=== PATIENT | female | born 1955 | race Caucasian/White ===

== ENCOUNTER 2018-12-05 10:58 | Emergency (ER) | payer MEDICARE ==
[2018-12-05 11:06] VITALS: BP 157/94
[2018-12-05] MEDS ORDERED: Albuterol/Ipratropium NEB.SOL* Albuterol 2.5 MG/Ipratropium 0.5 MG 3 ML INH ONE (11:49)
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
== END 2018-12-05 12:41 | disposition home or self-care (01) ==
LOC: UCEAST 10:58
DX: J20.9 Acute bronchitis, unspecified (principal); Z88.0 Allergy status to penicillin; Z88.5 Allergy status to narcotic agent; Z87.891 Personal history of nicotine dependence
CPT/HCPCS: 71046; 99212; A9270-GY; G0463

== ENCOUNTER 2019-02-25 12:25 | Emergency (ER) | payer MEDICARE ==
[2019-02-25 12:45] VITALS: BP 137/74
--- NOTE | 2019-02-25 13:17 | UC ---
UC General HPI - HPI Summary HPI Summary: Pleasant 63 yo female c/o last 3 days urinary freq /urg / dysuria. No alvin hematuria. No fever / chills. No Abd pain except bladder discomfort with urination. Some mid low back pain. No flank pain. Hx multiple abd surgeries, including gbd as as teenager, hysterectomy, bowel obst. + hx celiac dz, gluten free diet. Last colonoscopy approx 6 mo ago, polyps removed. Recent upper resp infection, tx via quinolone in the last couple months. Better now. Reports that uti's are usually e-coli, recently dx'd with uti several mo ago via pcp, rx quinolone. Does not want to take pyridium, makes her wheeze. Does not report vaginal problems. - History of Current Complaint Chief Complaint: UCGU Stated Complaint: URINARY ISSUE Time Seen by Provider: 02/25/19 12:55 Hx Obtained From: Patient Hx Last Menstrual Period: na Pain Intensity: 8 - Allergy/Home Medications Allergies/Adverse Reactions: Allergies Allergy/AdvReac Type Severity Reaction Status Date / Time Penicillins Allergy Intermediate Hives Verified 02/25/19 12:45 amoxicillin Allergy hives/difficulty Verified 02/25/19 12:45 breathing fentanyl AdvReac GI Upset Verified 02/25/19 12:45 PMH/Surg Hx/FS Hx/Imm Hx Previously Healthy: No - see hpi Other History Of: Negative For: Anticoagulant Therapy - Surgical History Surgical History: Yes Surgery Procedure, Year, and Place: hysterectomy. appendectomy. gastric bypass 1985. intestinal blockage surgery 09/20/12 x4. RIGHT TKR 2009 WITH REVISION 10/2013. age 11 - left breast - lumpectomy and lymph nodes - Family History Known Family History: Positive: Unknown - Social History Alcohol Use: Rare Substance Use Type: None Smoking Status (MU): Former Smoker Type: Cigarettes When Did the Patient Quit Smoking/Using Tobacco: 30 years - Immunization History Most Recent Influenza Vaccination: Most Recent Tetanus Shot: UNSURE Most Recent Pneumonia Vaccination: HAS HAD, USUALLY HAS EVERY YEAR BUT TOLD THIS YEAR NOT TO GET R/T KNEE SX Review of Systems All Other Systems Reviewed And Are Negative: Yes Constitutional: Positive: Negative Skin: Positive: Negative Eyes: Positive: Negative ENT: Positive: Negative Respiratory: Positive: Other - see hpi Cardiovascular: Positive: Other - see hpi Gastrointestinal: Positive: Other - see hpi Genitourinary: Positive: Other - see hpi Motor: Positive: Negative Neurovascular: Positive: Negative Musculoskeletal: Positive: Negative Neurological: Positive: Negative Psychological: Positive: Negative Is Patient Immunocompromised?: No Physical Exam Triage Information Reviewed: Yes Appearance: Well-Appearing - looks tired, Well-Nourished Vital Signs: Initial Vital Signs Temp 96.3 F 02/25/19 12:40 Pulse 75 02/25/19 12:40 Resp 16 02/25/19 12:40 BP 137/74 02/25/19 12:40 Pulse Ox 100 02/25/19 12:40 Vital Signs Reviewed: Yes Eye Exam: Normal ENT Exam: Normal Neck exam: Normal Neck: Positive: Supple Respiratory Exam: Other - mild exp wheeze R chest Respiratory: Positive: Chest non-tender, No respiratory distress, No accessory muscle use Cardiovascular Exam: Normal Cardiovascular: Positive: RRR, Brisk Capillary Refill Abdominal Exam: Other - several large scars d/t prior surgery. Tender to pressure over bladder area. No r/g. No flank discomfort or cvat perse. + tender subj mid low back. Abd soft, nd. No r/g. Bowel Sounds: Positive: Present Musculoskeletal Exam: Normal Neurological Exam: Normal - grossly nonfocal, detailed not done Psychological Exam: Normal - conversing easily and appropriately Skin Exam: Normal - nondiaphoretic Course/Dx - Course Course Of Treatment: I reviewed Ms. Xavier's urine cx results as aviailable, noteworthy for e-coli. Reviewed sens / res. No recent cx's. Urine dip without acute findings, however, d/t sx cx sent. Pt reports that this is not unusual. Will start ceftin (she has taken cephalosporins in the past), she expresses understanding and relief. Aware of the need to go to the ED for any problems, worse or new sx. Will f/u pcp 1-2 weeks. Will eat yogurt and / or probiotic during course of abx. Questions as posed answered to the best of my ability. - Diagnoses Provider Diagnosis: Dysuria Discharge - Sign-Out/Discharge Documenting (check all that apply): Patient Departure All imaging exams completed and their final reports reviewed: No Studies - Discharge Plan Condition: Stable Disposition: HOME Prescriptions: ceFUROXime TAB(*) [Ceftin TAB 250 MG(*)] 500 mg PO BID #20 tab Patient Education Materials: Dysuria (ED) Referrals: Alexi AUSTIN,Dariel Carter [Primary Care Provider] - Additional Instructions: Please follow up with your primary care physician, Dr. Truong, in the next 1-2 weeks. Drink plenty of water. Seek medical attention for worse or new problems (Emergency Department). You have a urine culture in the lab. - Billing Disposition and Condition Condition: STABLE Disposition: Home
== END 2019-02-25 13:34 | disposition home or self-care (01) ==
LOC: UCEAST 12:25
DX: R30.0 Dysuria (principal); R35.0 Frequency of micturition; R39.15 Urgency of urination; M54.5 Low back pain; Z88.0 Allergy status to penicillin; Z88.5 Allergy status to narcotic agent; Z87.891 Personal history of nicotine dependence
CPT/HCPCS: 81003; 87086; 99212; G0463

== ENCOUNTER 2020-01-14 11:38 | Emergency (ER) | payer MEDICARE ==
[2020-01-14 12:19] VITALS: BP 126/64
--- NOTE | 2020-01-14 13:21 | UC ---
FLU HPI - HPI Summary HPI Summary: 64 yo female presents with vomiting and diarrhea. She tells me that last night she felt her stomach was "off". She woke up around 0100 and felt very nauseous. She has vomited multiple times with loose stools. Last time vomited was 0700 and she is feeling better now. Tolerating water and osman krystal, but has not eaten due to fear of vomiting again. She saw her PCP yesterday for a routine check up and said everything was fine. She denies fever, chills, SOB, chest pain , abdominal pain, dysuria, back pain. - History of Current Complaint Chief Complaint: UCGeneralIllness Stated Complaint: VOMITING CONGESTION Time Seen by Provider: 01/14/20 13:21 Hx Obtained From: Patient Hx Last Menstrual Period: na Onset/Duration: Sudden Onset Severity Currently: None Severity Initially: Mild Pain Intensity: 0 - Allergy/Home Medications Allergies/Adverse Reactions: Allergies Allergy/AdvReac Type Severity Reaction Status Date / Time Penicillins Allergy Intermediate Hives Verified 01/14/20 12:19 amoxicillin Allergy hives/difficulty Verified 01/14/20 12:19 breathing fentanyl AdvReac GI Upset Verified 01/14/20 12:19 Home Medications: Home Medications LORazepam TAB(*) [Ativan 1 MG TAB (*)] 1 mg PO Q6H PRN 10/29/13 [History Confirmed 01/14/20] Lipase/Protease/Amylase [Jennifer Connors 10,500 Unit Cap] 2 cap PO TID WITH MEALS 10/29/13 [History Confirmed 01/14/20] Pantoprazole TAB * [Protonix TAB*] 40 mg PO BID 10/29/13 [History Confirmed 04/29] Potassium Chlor Tab* [K Dur Tab*] 10 meq PO DAILY PRN 10/29/13 [History Confirmed 01/14/20] Spironolactone TAB* [Aldactone TAB 25 MG*] 25 mg PO DAILY 10/29/13 [History Confirmed 01/14/20] Levothyroxine TAB* 1 tab PO DAILY 07/06/14 [History Confirmed 01/14/20] Miralax* 1 mg PO DAILY 10/27/14 [History Confirmed 01/14/20] Albuterol HFA INHALER* [Ventolin HFA Inhaler*] 1 - 2 puff INH Q4H PRN #1 mdi [Rx Confirmed 02/25/19] Inhaler, Assist Devices [Aerochamber Mv] 1 mis XX Q6HR #1 mis 12/05/18 [Rx Confirmed 02/25/19] Ondansetron ODT TAB* [Zofran 4 MG Odt TAB*] 4 mg PO Q8H PRN #12 tab.odt [Rx] PMH/Surg Hx/FS Hx/Imm Hx - Additional Past Medical History Additional PMH: UC "hole in heart" Other History Of: Negative For: Anticoagulant Therapy - Surgical History Surgical History: Yes Surgery Procedure, Year, and Place: hysterectomy. appendectomy. gastric bypass 1985. intestinal blockage surgery 09/20/12 x4. RIGHT TKR 2009 WITH REVISION 10/2013. Gallbladder at 16. age 11 - left breast - lumpectomy and lymph nodes - Family History Known Family History: Positive: Unknown - Social History Lives: With Family Alcohol Use: Rare Substance Use Type: None Smoking Status (MU): Former Smoker Type: Cigarettes When Did the Patient Quit Smoking/Using Tobacco: 30 years - Immunization History Most Recent Influenza Vaccination: Most Recent Tetanus Shot: UNSURE Most Recent Pneumonia Vaccination: HAS HAD, USUALLY HAS EVERY YEAR BUT TOLD THIS YEAR NOT TO GET R/T KNEE SX Review of Systems All Other Systems Reviewed And Are Negative: No Constitutional: Positive: Negative Skin: Positive: Negative Eyes: Positive: Negative ENT: Positive: Negative Respiratory: Positive: Negative Cardiovascular: Positive: Negative Gastrointestinal: Positive: Vomiting, Diarrhea, Nausea Genitourinary: Positive: Negative Neurological/Mental Status: Positive: Negative Psychological: Positive: Negative Physical Exam - Summary Physical Exam Summary: GENERAL: NAD. WDWN. No pain distress. SKIN: No rashes, sores, or open wounds. HEENT: Head: AT/NC Eyes: PERRLA. EOM intact. Conjunctiva clear without inflammation or discharge. Ears: Hearing grossly normal. TMs intact, no bulging, erythema, or edema. Nose: Nasal mucosa pink and moist. NTTP maxillary and frontal sinus. Throat: Posterior oropharynx without exudates, erythema, or tonsillar enlargement. Uvula midline. NECK: Supple. Nontender. No lymphadenopathy. CHEST: CTAB. No r/r/w. No accessory muscle use. Breathing comfortably and in no distress. CV: RRR. Pulses intact. Brisk cap refill. ABDOMEN: Soft. NTTP. No distention or guarding. No CVA tenderness. Bowel sounds present NEURO: Alert. PSYCH: Age appropriate behavior. Triage Information Reviewed: Yes Vital Signs: Initial Vital Signs Temp 99.1 F 01/14/20 12:12 Pulse 78 01/14/20 12:12 Resp 18 01/14/20 12:12 BP 126/64 01/14/20 12:12 Pulse Ox 98 01/14/20 12:12 Vital Signs Reviewed: Yes Flu Course/Dx - Course Course Of Treatment: Exam WNL. Pt is tolerating po at this point and has not had any more episodes of vomiting or diarrhea for the last ~5 hours. Suspect viral illness. Advised to rest and drink plenty of clear fluids. Advance diet as tolerated. - Differential Dx/Diagnosis Provider Diagnosis: Nausea and vomiting Discharge ED - Sign-Out/Discharge Documenting (check all that apply): Patient Departure All imaging exams completed and their final reports reviewed: No Studies - Discharge Plan Condition: Stable Disposition: HOME Prescriptions: Ondansetron ODT TAB* [Zofran 4 MG Odt TAB*] 4 mg PO Q8H PRN #12 tab.odt PRN Reason: Nausea Patient Education Materials: Acute Nausea and Vomiting (ED) Referrals: Alexi AUSTIN,Dariel Carter [Primary Care Provider] - Additional Instructions: If you develop a fever, shortness of breath, chest pain, new or worsening symptoms - please call your PCP or go to the ED immediately. If your vomiting continues or if you develop a fever or abdominal pain - please go to the ER immediately - Billing Disposition and Condition Condition: STABLE Disposition: Home
[2020-01-14 13:24] LABS: Influenza A Molecular Negative (Negative); Influenza B Molecular Negative (Negative)
== END 2020-01-14 13:36 | disposition home or self-care (01) ==
LOC: UCEAST 11:38
DX: R11.2 Nausea with vomiting, unspecified (principal); Z87.891 Personal history of nicotine dependence; Z88.0 Allergy status to penicillin; Z88.5 Allergy status to narcotic agent
CPT/HCPCS: 99212; G0463

== ENCOUNTER 2020-02-08 15:12 | Emergency (ER) | payer MEDICARE, OTHER ==
--- NOTE | 2020-02-08 15:50 | UC ---
Respiratory Complaint HPI - HPI Summary HPI Summary: 64yo woman with asthma and stable angina (based on cath done 07/2019), with persistent cough and shortness of breath. She was seen here 3 weeks ago with nausea and vomiting. Subsequent to that, she called her PMD, who sent in an rx for azithromycin, last dose yesterday and she continues to have shortness of breath. Note is made that she has a many month hx of shortness of breath with exertion, which is NOT worse now than it was 6 months ago. Because of finances, she opted not to follow up with cardiology following her catheterization. Long hx of lung "problems" since a crush injury to her chest due to a fall some years ago. She took advair in the past. - History of Current Complaint Chief Complaint: UCRespiratory Stated Complaint: TROUBLE BREATHING, STOMACH, HEAD ACHE Time Seen by Provider: 02/08/20 15:43 Hx Obtained From: Patient Hx Last Menstrual Period: na Onset/Duration: Gradual Onset Character: Cough: Productive - scant green production. Aggravating Factors: Recumbent Position Alleviating Factors: Bronchodilator Associated Signs And Symptoms: Positive: Dyspnea, Wheezing - last albuterol was 2 hours prior to assessment.. Negative: Dizziness - Risk Factors Pulmonary Embolism Risk Factors: Negative Cardiac Risk Factors: Negative Pseudomonas Risk Factors: Negative Tuberculosis Risk Factors: Negative - Allergies/Home Medications Allergies/Adverse Reactions: Allergies Allergy/AdvReac Type Severity Reaction Status Date / Time Penicillins Allergy Intermediate Hives Verified 02/08/20 15:24 amoxicillin Allergy hives/difficulty Verified 02/08/20 15:24 breathing fentanyl AdvReac GI Upset Verified 02/08/20 15:24 Home Medications: Home Medications LORazepam TAB(*) [Ativan 1 MG TAB (*)] 1 mg PO Q6H PRN 10/29/13 [History Confirmed 02/08/20] Lipase/Protease/Amylase [Jennifer Connors 10,500 Unit Cap] 2 cap PO TID WITH MEALS 10/29/13 [History Confirmed 02/08/20] Pantoprazole TAB * [Protonix TAB*] 40 mg PO BID 10/29/13 [History Confirmed ] Potassium Chlor Tab* [K Dur Tab*] 10 meq PO DAILY PRN 10/29/13 [History Confirmed 02/08/20] Spironolactone TAB* [Aldactone TAB 25 MG*] 25 mg PO DAILY 10/29/13 [History Confirmed 02/08/20] Levothyroxine TAB* 1 tab PO DAILY 07/06/14 [History Confirmed 02/08/20] Miralax* 1 mg PO DAILY 10/27/14 [History Confirmed 02/08/20] Albuterol HFA INHALER* [Ventolin HFA Inhaler*] 1 - 2 puff INH Q4H PRN #1 mdi [Rx Confirmed 02/08/20] Inhaler, Assist Devices [Aerochamber Mv] 1 mis XX Q6HR #1 mis 12/05/18 [Rx Confirmed 02/08/20] Ondansetron ODT TAB* [Zofran 4 MG Odt TAB*] 4 mg PO Q8H PRN #12 tab.odt [Rx Confirmed 02/08/20] Budesonide/Formote 160/4.5(NF) [Symbicort 160/4.5 (NF)] 2 puff INH BID #1 mdi [Rx] DOXYcycline CAP(*) [DOXYcycline 100MG CAP(*)] 100 mg PO BID #14 cap 02/08/20 [Rx ] PMH/Surg Hx/FS Hx/Imm Hx Endocrine History: Hypothyroidism Cardiovascular History: Cardiac Disease Respiratory History: Asthma GI/ History: Gastroesophageal Reflux Other History Of: Negative For: Anticoagulant Therapy - Surgical History Surgical History: Yes Surgery Procedure, Year, and Place: hysterectomy. appendectomy. gastric bypass 1985. intestinal blockage surgery 09/20/12 x4. RIGHT TKR 2009 WITH REVISION 10/2013. Gallbladder at 16. 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 Lives: With Family - lives with her son Alcohol Use: Rare Substance Use Type: None Smoking Status (MU): Former Smoker Type: Cigarettes When Did the Patient Quit Smoking/Using Tobacco: 30 years - Immunization History Most Recent Influenza Vaccination: Most Recent Tetanus Shot: UNSURE Most Recent Pneumonia Vaccination: HAS HAD, USUALLY HAS EVERY YEAR BUT TOLD THIS YEAR NOT TO GET R/T KNEE SX Review of Systems All Other Systems Reviewed And Are Negative: Yes Constitutional: Positive: Fatigue Skin: Positive: Negative Eyes: Positive: Negative ENT: Positive: Sinus Congestion Respiratory: Positive: Shortness Of Breath, Cough Cardiovascular: Positive: Chest Pain - describes stable angina--no worsening in the past months., Other - states "hole in her heart" per cathterization Gastrointestinal: Positive: Nausea. Negative: Abdominal Pain, Vomiting Genitourinary: Positive: Negative Motor: Positive: Negative Neurovascular: Positive: Negative Musculoskeletal: Positive: Myalgia Neurological/Mental Status: Positive: Headache - off and on Psychological: Positive: Negative Is Patient Immunocompromised?: No Physical Exam Triage Information Reviewed: Yes Appearance: No Pain Distress, Ill-Appearing - looks chronically unwell, with elevated blood pressure., Obese Eyes: Positive: Conjunctiva Clear ENT: Positive: Pharynx normal Dental Exam: Other - edentulous Neck: Positive: Supple, Nontender, No Lymphadenopathy Respiratory: Positive: No respiratory distress, No accessory muscle use, Wheezing - late expiratory wheeze throughout. Cardiovascular: Positive: RRR, No Murmur Musculoskeletal Exam: Normal Neurological Exam: Normal Psychological Exam: Normal Skin Exam: Normal Diagnostics - Laboratory Lab Results: Influenza negative. Respiratory Course/Dx - Course Course Of Treatment: Isolation ending covid. Discussed option of oral steroid, which she declined. Will send in Rx for Symbicort, aware that we do not do PA for meds, but this might be covered. Rx doxy for bronchitis. Follow up of blood pressure and CAD management strongly urged. - Differential Dx/Diagnosis Differential Diagnosis/HQI/PQRI: Asthma, Influenza, Lower Resp Infection, Sinusitis, Other - COVID Provider Diagnosis: Bronchitis Discharge ED - Sign-Out/Discharge Documenting (check all that apply): Patient Departure All imaging exams completed and their final reports reviewed: No Studies - Discharge Plan Condition: Stable Disposition: HOME Prescriptions: Budesonide/Formote 160/4.5(NF) [Symbicort 160/4.5 (NF)] 2 puff INH BID #1 mdi DOXYcycline CAP(*) [DOXYcycline 100MG CAP(*)] 100 mg PO BID #14 cap Patient Education Materials: Acute Bronchitis (ED), Asthma (ED) Forms: COVID-19 Tested & Isolation Referrals: Alexi AUSTIN,Dariel Carter [Primary Care Provider] - Additional Instructions: COVID testing has been done and you are advised to remain in isolation until your test report is called to you. Begin doxycycline for treatment of bronchitis. Most of your symptoms are probably due to asthma exacerbation. I have sent in a prescription for an inhaled steroid combined with a long acting bronchodilator. If your insurance does not cover this, we cannot do prior authorization, but we could change the inhaler IF you can call us with the name of a similar medication which is covered. Your pharmacist can give you a list. Rinse your mouth after using the medication to prevent oral thrush. FOLLOW UP with your primary doctor and your well control instructor within a week or so is essential . Your blood pressure today is elevated to 166/80, and you would benenfti from optimizing your medications for as asthma as well as your blood pressure and heart disease. - Billing Disposition and Condition Condition: STABLE Disposition: Home
[2020-02-08 16:11] LABS: Influenza A Molecular Negative (Negative); Influenza B Molecular Negative (Negative)
[2020-02-08 16:13] VITALS: BP 166/80
== END 2020-02-08 16:30 | disposition home or self-care (01) ==
LOC: UCEAST 15:12
DX: J45.909 Unspecified asthma, uncomplicated (principal); R06.09 Other forms of dyspnea; Z20.828 Contact with and (suspected) exposure to other viral communicable diseases; E03.9 Hypothyroidism, unspecified; I25.118 Atherosclerotic heart disease of native coronary artery with other forms of angina pectoris; K21.9 Gastro-esophageal reflux disease without esophagitis; Z79.890 Hormone replacement therapy; Z79.899 Other long term (current) drug therapy; Z88.5 Allergy status to narcotic agent; Z88.0 Allergy status to penicillin; Z87.891 Personal history of nicotine dependence
CPT/HCPCS: 87635; 99211; G0463

== ENCOUNTER 2020-02-12 17:21 | Emergency (ER) | payer MEDICARE ==
--- NOTE | 2020-02-12 17:31 | UC ---
Cardiac HPI - HPI Summary HPI Summary: The patient is a 64-year-old female that presents here with the onset of left- sided chest pain that started about an hour ago after she walked up a flight of stairs. She states that initially the chest pressure was a 6 or 7 out of 10. She was diaphoretic and short of breath after climbing the stairs. She states that she has a history of coronary artery disease and had a catheter performed July of last year at [facility]. She states that she had a stent. She states that she was supposed to follow-up with a business development consultant there but she never followed up. She states that she is supposed to take aspirin but is reluctant to do so because she has had bleeding ulcers. She states that she had a similar episode occur this morning which lasted about an hour. Currently she states her chest pain is 4 out of 10. She states that she feels fine now but if she tries to stand and walk she feels lightheaded. She is currently finishing up a round of doxycycline for bronchitis. She was recently cultivated 19 tested and found to be negative. When queried she states that she was told she had a left bundle-branch block after her catheterization. However she is not 100% sure of this. - History of Current Complaint Stated Complaint: CHEST COMPLAINT Time Seen by Provider: 02/12/20 17:23 Hx Obtained From: Patient Hx Last Menstrual Period: na Onset/Duration: Sudden Onset, Lasting Minutes Timing: Constant Initial Severity: Moderate Current Severity: Mild Pain Intensity: 4 Chest Pain Location: Lower Sternal Character: Pressure/Squeezing Aggravating Factor(s): Exertion Alleviating Factor(s): Rest Associated Signs & Symptoms: Positive: Chest Pain, Weakness, SOB, Diaphoresis, Nausea/Vomiting - no vomiting. Negative: Vision Changes, Anxiety, Recent Stress , Headaches, Numbness, Tingling, Swelling, Syncope, Fever, Palpitations, Cough, Hemoptysis, Back Pain, Abdominal Pain - Allergy/Home Medications Allergies/Adverse Reactions: Allergies Allergy/AdvReac Type Severity Reaction Status Date / Time Penicillins Allergy Intermediate Hives Verified 02/12/20 17:30 amoxicillin Allergy hives/difficulty Verified 02/12/20 17:30 breathing fentanyl AdvReac GI Upset Verified 02/12/20 17:30 Home Medications: Home Medications LORazepam TAB(*) [Ativan 1 MG TAB (*)] 1 mg PO Q6H PRN 10/29/13 [History Confirmed 02/12/20] Lipase/Protease/Amylase [Jennifer Connors 10,500 Unit Cap] 2 cap PO TID WITH MEALS 10/29/13 [History Confirmed 02/12/20] Pantoprazole TAB * [Protonix TAB*] 40 mg PO BID 10/29/13 [History Confirmed 02/27] Potassium Chlor Tab* [K Dur Tab*] 10 meq PO DAILY PRN 10/29/13 [History Confirmed 02/12/20] Spironolactone TAB* [Aldactone TAB 25 MG*] 25 mg PO DAILY 10/29/13 [History Confirmed 02/12/20] Levothyroxine TAB* 1 tab PO DAILY 07/06/14 [History Confirmed 02/12/20] Albuterol HFA INHALER* [Ventolin HFA Inhaler*] 1 - 2 puff INH Q4H PRN #1 mdi [Rx Confirmed 02/12/20] Budesonide/Formote 160/4.5(NF) [Symbicort 160/4.5 (NF)] 2 puff INH BID #1 mdi [Rx Confirmed 02/12/20] DOXYcycline CAP(*) [DOXYcycline 100MG CAP(*)] 100 mg PO BID #14 cap 02/08/20 [ Rx Confirmed 02/12/20] PMH/Surg Hx/FS Hx/Imm Hx Previously Healthy: Yes Cardiovascular History: Cardiac Disease, Hypertension Respiratory History: Asthma, Bronchitis GI/ History: Ulcer, Gastrointestional Bleed Psychological History: Anxiety Other History Of: Negative For: Anticoagulant Therapy - Surgical History Surgical History: Yes Surgery Procedure, Year, and Place: hysterectomy. appendectomy. gastric bypass 1985. intestinal blockage surgery 09/20/12 x4. RIGHT TKR 2009 WITH REVISION 10/2013. Gallbladder at 16. age 11 - left breast - lumpectomy and lymph nodes - Family History Known Family History: Positive: Hypertension - Social History Alcohol Use: Rare Substance Use Type: None Smoking Status (MU): Former Smoker Type: Cigarettes When Did the Patient Quit Smoking/Using Tobacco: 30 years - Immunization History Most Recent Influenza Vaccination: Most Recent Tetanus Shot: UNSURE Most Recent Pneumonia Vaccination: HAS HAD, USUALLY HAS EVERY YEAR BUT TOLD THIS YEAR NOT TO GET R/T KNEE SX Review of Systems All Other Systems Reviewed And Are Negative: Yes Constitutional: Positive: Negative Skin: Positive: Negative Eyes: Positive: Negative ENT: Positive: Negative Respiratory: Positive: Shortness Of Breath Cardiovascular: Positive: Chest Pain Gastrointestinal: Positive: Negative Motor: Positive: Negative Neurovascular: Positive: Negative Musculoskeletal: Positive: Edema - chronic Neurological/Mental Status: Positive: Negative Physical Exam Triage Information Reviewed: Yes Appearance: Well-Appearing, No Pain Distress, Well-Nourished Vital Signs Reviewed: Yes Eyes: Positive: Conjunctiva Clear ENT: Positive: Hearing grossly normal. Negative: Nasal congestion, Nasal drainage, Tonsillar swelling, Trismus, Muffled voice, Hoarse voice Neck: Positive: Supple, Nontender, No Lymphadenopathy Respiratory: Positive: Lungs clear, Normal breath sounds, No respiratory distress, No accessory muscle use Cardiovascular: Positive: RRR. Negative: Tachycardia, Bradycardia Abdomen Description: Positive: Nontender Bowel Sounds: Positive: Present Musculoskeletal: Positive: ROM Intact, Edema @ - mild pre tibial Neurological: Positive: Alert Psychological Exam: Normal Skin Exam: Normal Diagnostics - EKG Cardiac Rate: NL Cardiac Rhythm: Sinus: Normal, LBBB: Normal Ectopy: PACs EKG Comparison: Other - no recent comparison - Assessment/Plan Course Of Treatment: d/w Dr. Lam [facility] [place] transfer given 3 baby ASA and given SL ntg CP improved but still present at time of transfer - Clinical Impression Provider Diagnosis: Chest pain, Left bundle branch block (LBBB) Discharge ED - Sign-Out/Discharge Documenting (check all that apply): Patient Departure All imaging exams completed and their final reports reviewed: No Studies - Discharge Plan Condition: Fair Disposition: TRANS HIGHER LVL OF CARE FAC Referrals: Alexi AUSTIN,Dariel Carter [Primary Care Provider] - - Billing Disposition and Condition Condition: FAIR Disposition: Trans Higher Lvl of Care Fac
[2020-02-12] MEDS ORDERED: Aspirin 81 mg CHEW TAB* 81 MG TAB.CHEW PO ONE (17:42)
[2020-02-12] MEDS ORDERED: Nitroglycerin TAB 0.4 MG* 0.4 MG TAB SL ONE (17:55)
[2020-02-12] MEDS ORDERED: Nitroglycerin TAB 0.4 MG* 0.4 MG TAB ONE (17:56)
[2020-02-12 18:02] VITALS: BP 134/80
== END 2020-02-12 18:00 | disposition short-term general hospital (02) ==
LOC: UCEAST 17:21
DX: R07.89 Other chest pain (principal); I44.7 Left bundle-branch block, unspecified; R53.1 Weakness; R06.02 Shortness of breath; R61 Generalized hyperhidrosis; R11.0 Nausea; I10 Essential (primary) hypertension; J45.909 Unspecified asthma, uncomplicated; F41.9 Anxiety disorder, unspecified; Z79.899 Other long term (current) drug therapy; Z88.5 Allergy status to narcotic agent; Z88.0 Allergy status to penicillin; Z87.891 Personal history of nicotine dependence
CPT/HCPCS: 93005; 99213; A9270-GY; G0463

== ENCOUNTER 2020-03-07 17:43 | Emergency (ER) | payer MEDICARE ==
[2020-03-07] MEDS ORDERED: Aspirin EC 81 mg TAB.EC (enteric coated) PO ONE (18:02)
[2020-03-07 18:19] VITALS: BP 129/78
== END 2020-03-07 18:28 | disposition short-term general hospital (02) ==
LOC: UCEAST 17:43